=== PATIENT | female | born 1945 | race Caucasian/White ===

== ENCOUNTER 2024-09-28 11:37 | Emergency (ER) | payer MEDICARE, OTHER ==
--- NOTE | 2024-09-28 12:03 | ERPHSYRPT ---
- History of Present Illness Time Seen by Provider: 09/28/24 12:03 Source: patient Exam Limitations: no limitations Physician History: This is a 79-year-old white female patient of Dr. Reynoso and presents to the emergency department by private vehicle secondary to a fall that occurred prior to arrival. Patient states she just felt weak and ended up falling. Ther e is no history of loss of consciousness. She did hit the back of her head and the mid left forearm. Patient is not on any anticoagulation therapy. She has a history of hypertension, hyperlipidemia and coronary artery disease (CABG). Patient denies chest pain. Patient denies shortness of breath. Occurred: just prior to arrival Reason for Fall: unknown Injuries/Pain Location: head, upper extremity Loss of Consciousness: no loss of consciousness Quality: aching Severity of Pain-Max: mild Severity of Pain-Current: mild Modifying Factors: Improves With: movement Associated Symptoms (Fall): extremity injury (Mid left forearm skin tear), headache (Occipital region in the area of the scalp laceration), No chest pain, No shortness of breath, No vomiting Allergies/Adverse Reactions: Sulfa (Sulfonamide Antibiotics) Allergy (Verified 09/28/24 12:54) Home Medications: Aspirin 81 mg PO DAILY 04/22/15 [History] Metoprolol Succinate [Toprol Xl] 25 mg PO DAILY 04/22/15 [History] Biotin 1 mg PO DAILY 09/28/24 [History] Calcium Carbonate/Vitamin D3 [Caltrate 600 Plus D3 Tablet] 2 tab PO DAILY 09/28/24 [History] Estrogen,Con/M-Progest Acet [Prempro 0.625-2.5 mg Tablet] 1 each PO DAILY 09/28/24 [History] Furosemide 20 mg [Lasix 20 mg] 20 mg PO DAILY 09/28/24 [History] Potassium Chloride [Klor-Con] 20 meq PO DAILY 09/28/24 [History] Hx Tetanus, Diphtheria Vaccination/Date Given: No Hx Influenza Vaccination/Date Given: No Hx Pneumococcal Vaccination/Date Given: No Travel Risk - International Travel Have you traveled outside of the country in past 3 weeks: No - Emerging Infectious Disease Are you exhibiting symptoms associated with any current EIDs: No - Review of Systems Eyes: No Symptoms Ears, Nose, & Throat: No Symptoms Respiratory: No Symptoms Cardiac: No Symptoms Abdominal/Gastrointestinal: No Symptoms Genitourinary Symptoms: No Symptoms Musculoskeletal: Fall, Injury (Mid left forearm skin tear) Skin: Other (Skin tear mid left forearm. 2 cm scalp laceration occipital region) Neurological: Headache Psychological: No Symptoms Endocrine: No Symptoms Hematologic/Lymphatic: No Symptoms Immunological/Allergic: No Symptoms All Other Systems: Reviewed and Negative - Past Medical History Pertinent Past Medical History: No Cardiac History: Coronary Artery Disease - Past Surgical History Past Surgical History: Yes Cardiac: CABG - Social History Smoking Status: Never smoker Exposure to second hand smoke: No Drug Use: none Patient Lives Alone: No - Nursing Vital Signs Nursing Vital Signs: Initial Vital Signs Temperature 98.2 F 09/28/24 11:37 Pulse Rate 58 L 09/28/24 11:37 Respiratory Rate 20 09/28/24 11:37 Blood Pressure 179/78 09/28/24 11:37 O2 Sat by Pulse Oximetry 97 09/28/24 11:37 Pain Scale Pain Intensity 2 - Melissa Coma Score Best Eye Response (Melissa): (4) open spontaneously Best Verbal Response (Dalton): (5) oriented Best Motor Response (Dalton): (6) obeys commands Dalton Total: 15 - Physical Exam General Appearance: no apparent distress, alert, anxiety, thin Head Injury: lacerations (2 cm scalp laceration occipital region. No active bleeding. No foreign body.), tenderness (In the area of laceration of scalp) Eye Exam: PERRL/EOMI ENT Exam: airway nml, nml ext.inspection, No evidence of ENT injury Neck Exam: supple, trachea midline, full range of motion, normal alignment, normal inspection Respiratory/Chest Exam: normal breath sounds, No chest tenderness, No respiratory distress, No accessory muscle use Cardiovascular Exam: normal heart sounds, regular rate/rhythm Gastrointestinal Exam: soft, normal bowel sounds, No tenderness Back Exam: normal inspection, normal range of motion, CVA tenderness Extremity Exam: normal range of motion, other (Left mid forearm nonbleeding skin tear. Approximately 3 cm x 3 cm L-shaped.) Skin Exam: other (Skin tear left mid forearm. See above description) SpO2 Interpretation: normal O2 Delivery: Room Air - Course Nursing assessment & vital signs reviewed: Yes EKG Interpreted by Me: RATE (71), A-fib, NORMAL AXIS, NORMAL INTERVALS, NORMAL QRS, Other (No acute ischemic changes on today's twelve-lead EKG. QTc is 398.) Ordered Tests: Active Orders 24 hr Category Date Time Status EKG-ER Only STAT Care 09/28/24 14:35 Active FOREARM Stat Exams 09/28/24 12:42 Completed HEAD WITHOUT CONTRAST [CT] Stat Exams 09/28/24 12:42 Completed CBC W DIFF Stat Lab 09/28/24 13:50 Completed CMP Stat Lab 09/28/24 13:50 Completed TROPONIN Q4H Lab 09/28/24 13:50 Completed TROPONIN Q4H Lab 09/28/24 17:45 Ordered TROPONIN Q4H Lab 09/28/24 21:45 Ordered UA W/RFX UR CULTURE Stat Lab 09/28/24 14:01 Completed Medication Summary Discontinued Medications Generic Name Dose Route Start Last Admin Trade Name Freq PRN Reason Stop Dose Admin Lidocaine/Prilocaine 2.5 gm 09/28/24 12:41 09/28/24 12:50 Lidocaine/Prilocaine 5 Gm 5 Gm Tube TP 09/28/24 12:42 2.5 gm STAT ONE Administration Lidocaine/Prilocaine Confirm 09/28/24 12:50 Lidocaine/Prilocaine 5 Gm 5 Gm Tube Administered 09/28/24 12:51 Dose 5 gm TP .STK-MED ONE Lab/Rad Data: Laboratory Result Diagrams 09/28/24 13:50 09/28/24 13:50 Laboratory Results 09/28/24 09/28/24 09/28/24 Range/Units 14:01 13:50 13:50 WBC (3.98-10.04) x10^3/uL RBC (3.93-5.22) x10^6/uL Hgb (11.2-15.7) g/dL Hct (34.1-44.9) % MCV (79.4-94.8) fL MCH (25.6-32.2) pg MCHC (32.2-35.5) g/dL RDW (11.7-14.4) % Plt Count (182-369) x10^3/uL MPV (9.4-12.3) fL Gran % (34.0-71.1) % Immature Gran % (Auto) (0.001-0.429) % Nucleat RBC Rel Count (0.00-0.2) % Eos # (Auto) (0.04-0.36) x10^3/uL Immature Gran # (Auto) (0.001-0.031) x10^3u/L Absolute Lymphs (auto) (1.18-3.74) x10^3/uL Absolute Monos (auto) (0.24-0.86) x10^3/uL Absolute Nucleated RBC (0.00-0.012) x10^3u/L Lymphocytes % (19.3-51.7) % Monocytes % (4.7-12.5) % Eosinophils % (0.7-5.8) % Basophils % (0.1-1.2) % Absolute Granulocytes (1.56-6.13) x10^3/uL Basophils # (0.01-0.08) x10^3/uL Sodium 139 (135-145) mmol/L Potassium 4.2 (3.5-5.1) mmol/L Chloride 104 (98-107) mmol/L Carbon Dioxide 27 (22-30) mmol/L Anion Gap 11.8 (5-15) MEQ/L BUN 10 (7-17) mg/dL Creatinine 0.65 (0.52-1.04) mg/dL Estimated GFR 90.1 ML/MIN Glucose 105 (74-106) mg/dL Calcium 10.1 (8.4-10.2) mg/dL Total Bilirubin 0.50 (0.2-1.3) mg/dL AST 24 (14-36) U/L ALT 12 (0-35) U/L Alkaline Phosphatase 72 (38-126) U/L Troponin I < 0.012 (0.000-0.033) ng/mL Serum Total Protein 6.6 (6.3-8.2) g/dL Albumin 3.9 (3.5-5.0) g/dL Urine Color Yellow (Yellow) Urine Appearance Clear (Clear) Urine pH 6.5 (4.6-8.0) Ur Specific Lincoln <=1.005 (1.005-1.030) Urine Protein Negative (Negative) Urine Glucose (UA) Negative (Negative) mg/dL Urine Ketones Negative (Negative) Urine Blood Negative (Negative) Urine Nitrite Negative (Negative) Urine Bilirubin Negative (Negative) Urine Urobilinogen 0.2 (0.2) mg/dL Ur Leukocyte Esterase Negative (Negative) U Hyaline Cast (Auto) NONE SEEN (0-2) /LPF Urine Microscopic RBC 0-2 (0-5) /HPF Urine Microscopic WBC 0-2 (0-5) /HPF Ur Epithelial Cells None Seen (None Seen) /HPF Urine Bacteria None Seen (None Seen) /HPF Urine Culture Reflexed NO (NO) 09/28/24 Range/Units 13:50 WBC 9.7 (3.98-10.04) x10^3/uL RBC 4.33 (3.93-5.22) x10^6/uL Hgb 13.3 (11.2-15.7) g/dL Hct 41.1 (34.1-44.9) % MCV 94.9 H (79.4-94.8) fL MCH 30.7 (25.6-32.2) pg MCHC 32.4 (32.2-35.5) g/dL RDW 13.6 (11.7-14.4) % Plt Count 218 (182-369) x10^3/uL MPV 9.8 (9.4-12.3) fL Gran % 70.4 (34.0-71.1) % Immature Gran % (Auto) 0.3 (0.001-0.429) % Nucleat RBC Rel Count 0.0 (0.00-0.2) % Eos # (Auto) 0.13 (0.04-0.36) x10^3/uL Immature Gran # (Auto) 0.03 (0.001-0.031) x10^3u/L Absolute Lymphs (auto) 2.03 (1.18-3.74) x10^3/uL Absolute Monos (auto) 0.63 (0.24-0.86) x10^3/uL Absolute Nucleated RBC 0.00 (0.00-0.012) x10^3u/L Lymphocytes % 21.0 (19.3-51.7) % Monocytes % 6.5 (4.7-12.5) % Eosinophils % 1.3 (0.7-5.8) % Basophils % 0.5 (0.1-1.2) % Absolute Granulocytes 6.80 H (1.56-6.13) x10^3/uL Basophils # 0.05 (0.01-0.08) x10^3/uL Sodium (135-145) mmol/L Potassium (3.5-5.1) mmol/L Chloride (98-107) mmol/L Carbon Dioxide (22-30) mmol/L Anion Gap (5-15) MEQ/L BUN (7-17) mg/dL Creatinine (0.52-1.04) mg/dL Estimated GFR ML/MIN Glucose (74-106) mg/dL Calcium (8.4-10.2) mg/dL Total Bilirubin (0.2-1.3) mg/dL AST (14-36) U/L ALT (0-35) U/L Alkaline Phosphatase (38-126) U/L Troponin I (0.000-0.033) ng/mL Serum Total Protein (6.3-8.2) g/dL Albumin (3.5-5.0) g/dL Urine Color (Yellow) Urine Appearance (Clear) Urine pH (4.6-8.0) Ur Specific Lincoln (1.005-1.030) Urine Protein (Negative) Urine Glucose (UA) (Negative) mg/dL Urine Ketones (Negative) Urine Blood (Negative) Urine Nitrite (Negative) Urine Bilirubin (Negative) Urine Urobilinogen (0.2) mg/dL Ur Leukocyte Esterase (Negative) U Hyaline Cast (Auto) (0-2) /LPF Urine Microscopic RBC (0-5) /HPF Urine Microscopic WBC (0-5) /HPF Ur Epithelial Cells (None Seen) /HPF Urine Bacteria (None Seen) /HPF Urine Culture Reflexed (NO) - Progress Progress: improved, pain not gone completely Progress Note: 09/28/24 13:45 My medical decision making and the assignment of moderate complexity to this patient's medical issue today is based on review of the patient's past medical history, review of the patient's medication list, reviewed patient drug allergy list, history present illness and physical findings on examination. The workup in this patient includes twelve-lead EKG, troponin level, CBC, CMP, urinalysis, CT scan of the head. Differential diagnosis includes but is not limited to myocardial infarction, arrhythmia, urinary tract infection, dehydration, acute intracranial abnormality 09/28/24 14:[address] scan of the head without contrast was interpreted by the radiologist and I reviewed the impression. The impression states normal CT scan of the head without contrast. The left forearm x-ray was interpreted by the radiologist and I reviewed the impression. The impression states soft tissue abnormality posterior lateral region? Laceration. No acute osseous abnormality. 09/28/24 14:52 I interpreted the patient's laboratory data results. Based on laboratory data results, there are no acute, emergent medical issues. Counseled pt/family regarding: lab results, diagnosis, need for follow-up, rad results Medical Desision Making - Diagnostic Testing Diagnostic test were ordered, analyzed, and reviewed by me: Yes Radiological Interpretation: Reviewed by me, Teleradiologist Report - Risk of complications Low Risk: Low risk of morbidity from additional dx testing or treatment - Departure Departure Disposition: Home Clinical Impression: Fall with significant injury, Occipital scalp laceration, Skin tear of left forearm without complication, Rate controlled atrial fibrillation Condition: Stable Critical Care Time: No Referrals: MILVIA REYNOSO [Primary Care Provider] - Follow up/PCP as directed Additional Instructions: Drink plenty of fluids. Take your medications as prescribed. Staple removal in 8 to 10 days. Care for your skin tear per instructions. Call your primary care provider and [facility] representatives today, 09/28/2024, to make arrangements for follow-up appointment to be seen in the next 2 to 3 days
[2024-09-28 12:39] VITALS: TEMP 98.2
[2024-09-28] MEDS ORDERED: EMLA Cream 5 GM TP ONE (12:50)
[2024-09-28] MEDS: EMLA Cream 5 GM TP ONE (12:50)
[2024-09-28 13:08] VITALS: RESP 24
[2024-09-28 13:53] LABS: BASOPHIL % 0.5 % (0.1-1.2); Basophil (Absolute #) 0.05 x10^3/uL (0.01-0.08); Eosinophil % 1.3 % (0.7-5.8); Eosinophil (Absolute #) 0.13 x10^3/uL (0.04-0.36); Hematocrit 41.1 % (34.1-44.9); Hemoglobin 13.3 g/dL (11.2-15.7); IMMATURE GRAN # 0.03 x10^3u/L (0.001-0.031); IMMATURE GRAN % 0.3 % (0.001-0.429); Lymphocyte (Absolute #) 2.03 x10^3/uL (1.18-3.74); Mean Cell Volume 94.9 fL (79.4-94.8); Mean Corpuscular Hemoglobin 30.7 pg (25.6-32.2); Mean Corpuscular Hgb Concent. 32.4 g/dL (32.2-35.5); Mean Platelet Volume 9.8 fL (9.4-12.3); Monocyte (Absolute #) 0.63 x10^3/uL (0.24-0.86); Monocytes % 6.5 % (4.7-12.5); Neutrophil % 70.4 % (34.0-71.1); Platelet Count 218 x10^3/uL (182-369); Red Blood Count 4.33 x10^6/uL (3.93-5.22); Red Cell Distribution Width 13.6 % (11.7-14.4); White Blood Count 9.7 x10^3/uL (3.98-10.04)
[2024-09-28 14:04] VITALS: BP 195/94; PULSE 58; O2SAT 97
[2024-09-28 14:07] LABS: ALBUMIN 3.9 g/dL (3.5-5.0); ANION GAP 11.8 MEQ/L (5-15); BILIRUBIN,TOTAL 0.5 mg/dL (0.2-1.3); Calcium 10.1 mg/dL (8.4-10.2); Creatinine 1 0.65 mg/dL (0.52-1.04); EST GLOMERULAR FILTRATION RATE 90.1 ML/MIN; Potassium 4.2 mmol/L (3.5-5.1); Total Protein 6.6 g/dL (6.3-8.2)
--- NOTE | 2024-09-28 14:10 | XRAY ---
Indication: Laceration following fall. Comparison: None 2 portable views left forearm demonstrates posterior lateral soft tissue laceration, osteopenia, and minimal vascular calcifications. No other bony, articular, or soft tissue abnormalities.
--- NOTE | 2024-09-28 14:10 | XRAY ---
Indication: Posterior head injury following fall. Multiple contiguous axial images obtained the head without contrast. Impression: None Normal appearing brain parenchyma, ventricles, and bony calvarium for patient's age. Visualized paranasal sinuses and mastoid air cells are clear. Impression: Normal CT head without contrast exam.
[2024-09-28 14:11] LABS: Appearance Clear (Clear); Bacteria None Seen /HPF (None Seen); Bilirubin Negative (Negative); Blood Negative (Negative); Epithelial Cells None Seen /HPF (None Seen); Glucose, Urine Negative (Negative); Hyaline Casts NONE SEEN /LPF (0-2); Ketones Negative (Negative); Leukocyte Esterase Negative (Negative); Nitrite Negative (Negative); Ph 6.5 (4.6-8.0); Protein,Urine Dip Negative (Negative); RBC 0-2 /HPF (0-5); Specific Gravity <=1.005 (1.005-1.030); Urobilinogen 0.2 mg/dL (0.2); WBC 0-2 /HPF (0-5)
== END 2024-09-28 15:07 | disposition home or self-care (01) ==
LOC: ED 11:37
DX: S01.01XA Laceration without foreign body of scalp, initial encounter (principal); S51.812A Laceration without foreign body of left forearm, initial encounter; R51.9 Headache, unspecified; W19.XXXA Unspecified fall, initial encounter; I48.91 Unspecified atrial fibrillation
CPT/HCPCS: 36415; 70450; 73090; 80053; 81001; 84484; 85025; 93005; 99284; 99285; A9270-GY